=== PATIENT | male | born 1970 | race Caucasian/White ===

== ENCOUNTER 2017-10-18 01:07 | Emergency (ER) | payer OTHER ==
[~2017-10-18] VITALS: Ht 182.9 cm; Wt 58.5 kg
[2017-10-18] MEDS ORDERED: DESCOVY 200-251 EACH PO (01:24)
[2017-10-18] MEDS ORDERED: TIVICAY50 MG ORAL (01:24)
[2017-10-18] MEDS ORDERED: TAMSULOSIN HCL0.4 MG ORAL (01:24)
[2017-10-18 01:30] VITALS: BP 111/72
[2017-10-18 01:39] LABS: BILIRUBIN, URINE NEGATIVE (NEGATIVE); COLOR,URINE PALE YELLOW; GLUCOSE, URINE (UA) NEGATIVE (NEGATIVE); KETONES,URINE NEGATIVE (NEGATIVE); LEUKOCYTE ESTERASE ,URINE 3+ (NEGATIVE); NITRITE,URINE POSITIVE (NEGATIVE); PH,URINE 6 (4.5-8.0); PROTEIN,URINE 2+ (NEGATIVE); UROBILINOGEN,URINE NORMAL MG/DL (0.0-1.0)
--- NOTE | 2017-10-18 01:50 | Emergency Room Report ---
History of Present Illness General Chief Complaint: Male Urogenital Problems Source: Patient Present Illness HPI [id number] walk-in with "2 years of burning pain on urination." No polyuria, abd pain, nausea/vomiting. This last month associated with fever/chills, "pain to penis when sitting" but denies rectal pain. States he was at outside hospital in August who received urine Cx results from urgent care clinic where he was previously and was told he "is resistant to a lot of antibiotics." Was given Fosphomycin Abx which he took already Allergies: Coded Allergies: No Known Allergies (Unverified , 10/18/17) Patient History Past Medical History: HIV Past Surgical History: none Pertinent Family History: none Social History: Denies: smoking, alcohol use, drug use Immunizations: UTD Reviewed Nursing Documentation: PMH: Agreed, PSxH: Agreed Review of Systems All Other Systems: negative except mentioned in HPI Physical Exam Vital Signs Date Time Temp Pulse Resp B/P (MAP) Pulse Ox O2 Delivery O2 Flow Rate FiO2 10/18/17 01:15 97.5 101 18 111/72 97 Room Air Sp02 EP Interpretation: reviewed, normal General Appearance: normal inspection, well appearing, no apparent distress, alert, GCS 15, non-toxic Head: normocephalic, atraumatic Eyes: bilateral eye PERRL, bilateral eye EOMI ENT: normal ENT inspection, hearing grossly normal, normal pharynx, no angioedema, normal voice, TMs + canals normal, uvula midline, moist mucus membranes Neck: normal inspection, full range of motion, supple, thyroid normal, no meningismus, no bony tend Respiratory: normal inspection, lungs clear, normal breath sounds, no rhonchi, no respiratory distress, no retraction, no accessory muscle use, no wheezing, speaking full sentences Cardiovascular #1: regular rate, rhythm, no edema, no JVD, normal capillary refill Gastrointestinal: normal inspection, normal bowel sounds, non tender, soft, no mass, no peritonitis, non-distended, no guarding, no hernia, no pulsatile mass Genitourinary: no CVA tenderness Musculoskeletal: normal inspection, back normal, normal range of motion, no calf tenderness, pelvis stable, Renetta's Sign negative Neurologic: normal inspection, alert, oriented x3, responsive, lead burner supervisor III-XII nml as tested, motor strength/tone normal, cerebellar normal, normal gait, speech normal Psychiatric: normal inspection, judgement/insight normal, mood/affect normal, no suicidal/homicidal ideation, no delusions Skin: normal inspection, normal color, no rash Lymphatic: normal inspection, no adenopathy Medical Decision Making Diagnostic Impression: Primary Impression: Dysuria Additional Impression: Pyelonephritis ER Course Nitrite positive again here VSS, Afebrile Not septic appearing Will tx empirically for prostatitis with 1 month cipro Will followup on urine cx susceptibility Likely will need admission for IV Abx at some point and ID consult I have patient's correct phone number as well ER course: Patient has remained stable during ED stay. Disposition: Patient is to be discharged to home. Prescriptions given are cipro Patient is instructed to follow up with their primary care doctor within 5 days. Strict return precautions discussed with patient such as fever, chills, worsening/severe pain, nausea, vomiting, which may indicate severe illness. Patient verbalizes understanding and agrees with plan. Please note that this Emergency Department Report was dictated using [employer] transformation specialist technology software, occasionally this can lead to erroneous entry secondary to interpretation by the dictation equipment Last Vital Signs Date Time Temp Pulse Resp B/P (MAP) Pulse Ox O2 Delivery O2 Flow Rate FiO2 10/18/17 01:15 97.5 101 18 111/72 97 Room Air Status: improved Disposition: HOME, SELF-CARE Scripts Ciprofloxacin HCl (Ciprofloxacin HCl) 750 Mg Tablet 750 MG PO DAILY for 30 Days, #30 TAB Prov: LISA MALAVE M.D. 10/18/17 LISA MALAVE M.D. Oct 18, 2017 01:49
[2017-10-18 02:05] LABS: APPEARANCE,URINE CLOUDY
[2017-10-18] MEDS ORDERED: CIPROFLOXACIN750 M1 PO (02:11)
[2017-10-18 02:20] VITALS: BP 111/72
== END 2017-10-18 02:20 | disposition home or self-care (01) ==
LOC: EMR 01:38
DX: N12 Tubulo-interstitial nephritis, not specified as acute or chronic (principal)
CPT/HCPCS: 81003; 87086; 87181; 99283

== ENCOUNTER 2017-10-21 08:55 | Emergency (ER) | payer OTHER ==
[~2017-10-21] VITALS: Ht 180.3 cm; Wt 54.9 kg
[~2017-10-21 08:55] MED LIST: CIPROFLOXACIN750 M1 PO; DESCOVY 200-251 EACH PO; TAMSULOSIN HCL0.4 MG ORAL; TIVICAY50 MG ORAL
[2017-10-21 09:10] VITALS: BP 135/78
[2017-10-21] MEDS ORDERED: Piperacillin/Tazobactam 3.375 GM in NS 110 ML IVPB ONE (09:15)
[2017-10-21] MEDS ORDERED: Zosyn 3.375gm inj ONE (10:00)
[2017-10-21 10:25] LABS: BASOPHILS % (AUTO) 1.3 % (0.0-2.0); EOSINOPHILS % (AUTO) 3.1 % (0.0-3.0); HEMATOCRIT 45.1 % (42.0-52.0); HEMOGLOBIN 15.4 G/DL (14.2-18.0); LYMPHOCYTES % (AUTO) 33.8 % (20.0-45.0); MEAN CORPUSCULAR VOLUME 94 FL (80-99); MONOCYTES % (AUTO) 11.2 % (1.0-10.0); NEUTROPHILS % (AUTO) 50.6 % (45.0-75.0); PLATELET COUNT 483 K/UL (150-450); RED BLOOD COUNT 4.82 M/UL (4.70-6.10); RED CELL DISTRIBUTION WIDTH 13.4 % (11.6-14.8); WHITE BLOOD COUNT 11.7 K/UL (4.8-10.8)
[2017-10-21 10:27] LABS: ANION GAP 9 mmol/L (5-15); BLOOD UREA NITROGEN 20 mg/dL (7-18); CALCIUM 9.8 MG/DL (8.5-10.1); CARBON DIOXIDE 27 MMOL/L (21-32); CHLORIDE 101 MMOL/L (98-107); CREATININE 1.4 MG/DL (0.55-1.30); POTASSIUM 3.6 MMOL/L (3.5-5.1); SODIUM 137 MMOL/L (136-145)
--- NOTE | 2017-10-21 10:37 | Emergency Room Report ---
History of Present Illness General Chief Complaint: Male Urogenital Problems Source: Patient, Medical Record (CARROLL VANEGAS D.O.) Present Illness HPI Patient was here several days ago with bladder type complaints patient was initiated on oral antibiotics However microbiology shows pain resistance and patient was requested to return Patient presents with fairly chronic pathology as well reporting several oral medications in the past Currently he was having pain with urination some bilateral flank discomfort Increased nausea Denies any vomiting or diarrhea subjective low-grade fever at home denies any rash pain is 4/10 with urination Patient has history of HIV however is well controlled with medication (CARROLL VANEGAS D.O.) Allergies: Coded Allergies: No Known Allergies (Unverified , 10/18/17) Patient History Past Medical History: see triage record Pertinent Family History: none Reviewed Nursing Documentation: PMH: Agreed, PSxH: Agreed (CARROLL VANEGAS D.O.) Nursing Documentation-PMH Past Medical History: No History, Except For (CARROLL VANEGAS D.O.) Review of Systems All Other Systems: negative except mentioned in HPI (CARROLL VANEGAS D.O.) Physical Exam Vital Signs Date Time Temp Pulse Resp B/P (MAP) Pulse Ox O2 Delivery O2 Flow Rate FiO2 10/21/17 09:01 97.3 84 18 135/78 98 Room Air Sp02 EP Interpretation: reviewed, normal General Appearance: no apparent distress - However patient appears thin and frail Head: normocephalic, atraumatic Eyes: bilateral eye PERRL, bilateral eye EOMI ENT: hearing grossly normal, TMs + canals normal, uvula midline, dry mucus membranes Neck: full range of motion, supple, no meningismus, no bony tend Respiratory: lungs clear, normal breath sounds, no rhonchi, no respiratory distress, no retraction, no accessory muscle use Cardiovascular #1: normal peripheral pulses, regular rate, rhythm, no edema, no gallop, no JVD, no murmur Gastrointestinal: normal bowel sounds, non tender, soft, no mass, no organomegaly, non-distended, no guarding, no hernia, no pulsatile mass, no rebound Musculoskeletal: normal inspection Neurologic: oriented x3, responsive, marketing editor III-XII nml as tested, motor strength/ tone normal, sensory intact Psychiatric: mood/affect normal Skin: normal color, no rash, warm/dry, palpation normal Lymphatic: normal inspection, no adenopathy (CARROLL VANEGAS D.O.) Medical Decision Making Diagnostic Impression: Primary Impression: Pyelonephritis ER Course Patient presents back with a fairly complicated Pyelonephritis/cystitis Patient had repeat blood work initiated it appears from a previous culture that the patient has sensitivity to Zosyn this was provided Patient further hydrated Patient does give some history of previous and chronic pathology regarding this however given her immunocompromised status and the finding will require inpatient care Patient required transfer secondary to insurance purposes Labs Test 10/21/17 10:00 10/21/17 11:00 White Blood Count 11.7 K/UL (4.8-10.8) Red Blood Count 4.82 M/UL (4.70-6.10) Hemoglobin 15.4 G/DL (14.2-18.0) Hematocrit 45.1 % (42.0-52.0) Mean Corpuscular Volume 94 FL (80-99) Mean Corpuscular Hemoglobin 31.9 PG (27.0-31.0) Mean Corpuscular Hemoglobin Concent 34.1 G/DL (32.0-36.0) Red Cell Distribution Width 13.4 % (11.6-14.8) Platelet Count 483 K/UL (150-450) Mean Platelet Volume 5.3 FL (6.5-10.1) Neutrophils (%) (Auto) 50.6 % (45.0-75.0) Lymphocytes (%) (Auto) 33.8 % (20.0-45.0) Monocytes (%) (Auto) 11.2 % (1.0-10.0) Eosinophils (%) (Auto) 3.1 % (0.0-3.0) Basophils (%) (Auto) 1.3 % (0.0-2.0) Sodium Level 137 MMOL/L (136-145) Potassium Level 3.6 MMOL/L (3.5-5.1) Chloride Level 101 MMOL/L (98-107) Carbon Dioxide Level 27 MMOL/L (21-32) Anion Gap 9 mmol/L (5-15) Blood Urea Nitrogen 20 mg/dL (7-18) Creatinine 1.4 MG/DL (0.55-1.30) Estimat Glomerular Filtration Rate 53.9 mL/min (>60) Glucose Level 119 MG/DL (74-106) Lactic Acid Level 1.50 mmol/L (0.66-2.22) Calcium Level 9.8 MG/DL (8.5-10.1) Total Bilirubin 0.5 MG/DL (0.2-1.0) Aspartate Amino Transf (AST/SGOT) 35 U/L (15-37) Alanine Aminotransferase (ALT/SGPT) 51 U/L (12-78) Alkaline Phosphatase 97 U/L (46-116) Total Creatine Kinase 86 U/L (26-308) Creatine Kinase MB < 0.5 NG/ML (0.0-3.6) Creatine Kinase MB Relative Index Total Protein 9.2 G/DL (6.4-8.2) Albumin 3.6 G/DL (3.4-5.0) Globulin 5.6 g/dL Albumin/Globulin Ratio 0.6 (1.0-2.7) Urine Color Yellow Urine Appearance Cloudy Urine pH 6 (4.5-8.0) Urine Specific [place] 1.015 (1.005-1.035) Urine Protein 2+ (NEGATIVE) Urine Glucose (UA) Negative (NEGATIVE) Urine Ketones Negative (NEGATIVE) Urine Occult Blood 4+ (NEGATIVE) Urine Nitrite Positive (NEGATIVE) Urine Bilirubin Negative (NEGATIVE) Urine Urobilinogen Normal MG/DL (0.0-1.0) Urine Leukocyte Esterase 3+ (NEGATIVE) Urine RBC 2-4 /HPF (0 - 0) Urine WBC 30-40 /HPF (0 - 0) Urine Squamous Epithelial Cells Occasional /LPF Urine Bacteria Moderate /HPF (NONE) (CARROLL VANEGAS D.O.) ER Course Urine culture shows ESBL. Patient has history of multidrug resistance UTI. patient transferred to [facility]. Cx results faxed (CHIP SAHA M.D.) Last Vital Signs Date Time Temp Pulse Resp B/P (MAP) Pulse Ox O2 Delivery O2 Flow Rate FiO2 10/21/17 09:10 18 135/78 98 Room Air 10/21/17 09:01 97.3 84 Status: improved (CARROLL VANEGAS D.O.) Disposition: XFER SHT-TRM HOSP Condition: Serious Referrals: [facility],REFERRING (PCP) CARROLL VANEGAS D.O. Oct 21, 2017 10:37 CHIP SAHA M.D. Oct 21, 2017 23:48
[2017-10-21 10:41] LABS: ALANINE AMINOTRANSFERASE 51 U/L (12-78); ALBUMIN 3.6 G/DL (3.4-5.0); ALBUMIN/GLOBULIN RATIO 0.6 (1.0-2.7); ALKALINE PHOSPHATASE 97 U/L (46-116); ASPARTATE AMINO TRANSFERASE 35 U/L (15-37); BILIRUBIN,TOTAL 0.5 MG/DL (0.2-1.0); CKMB < 0.5 NG/ML (0.0-3.6); CREATINE KINASE 86 U/L (26-308)
[2017-10-21 11:26] LABS: APPEARANCE,URINE CLOUDY; BILIRUBIN, URINE NEGATIVE (NEGATIVE); GLUCOSE, URINE (UA) NEGATIVE (NEGATIVE); KETONES,URINE NEGATIVE (NEGATIVE); LEUKOCYTE ESTERASE ,URINE 3+ (NEGATIVE); NITRITE,URINE POSITIVE (NEGATIVE); PH,URINE 6 (4.5-8.0); PROTEIN,URINE 2+ (NEGATIVE); UROBILINOGEN,URINE NORMAL MG/DL (0.0-1.0)
[2017-10-21 11:27] VITALS: BP 135/85
[2017-10-21 11:27] LABS: COLOR,URINE YELLOW
[2017-10-21 11:52] VITALS: BP 135/85
== END 2017-10-21 11:52 | disposition other institution (70) ==
LOC: EMR 09:25
DX: N12 Tubulo-interstitial nephritis, not specified as acute or chronic (principal)
CPT/HCPCS: 36415; 80053; 81003; 82550; 82553; 83605; 85025; 87040; 87086; 87181; 96361; 96365; 99285; J2543

== ENCOUNTER 2019-05-27 12:01 | Emergency (ER) | payer OTHER ==
[~2019-05-27] VITALS: Ht 180.3 cm; Wt 54.9 kg
[2019-05-27 12:09] VITALS: BP 103/74
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
--- NOTE | 2019-05-27 13:23 | Diagnostic Imaging Report ---
Indication: Headache and head trauma Technique: Contiguous 5 mm thick transaxial imaging of the head obtained in a Siemens Sensation [address] scanner. Soft tissue and bone windows generated. Automatic Exposure Control was utilized. Total Dose length Product (DLP): 1660.[address] Dose Index Volume (CTDIvol): 70.38,7.53 mGy Comparison: none Findings: The size and configuration of the cortical sulci, basal cisterns, and ventricles are within normal limits for age. There is no mass effect, midline shift, or edema identified. There is no evidence of acute hemorrhage or abnormal intra-axial or extra-axial fluid collections. The bones and soft tissues are unremarkable. Impression: No mass effect, edema or acute bleed. [facility] has communicated the preliminary results to the Emergency Department. Their findings are largely concordant with this report. The CT scanner at [facility] is accredited by the [employer] and the scans are performed using dose optimization techniques as appropriate to a performed exam including Automatic Exposure control.
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
[2019-05-27] MEDS ORDERED: IBUPROFEN600 MG ORAL (13:46)
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
[2019-05-27 14:15] VITALS: BP 108/69
== END 2019-05-27 14:15 | disposition home or self-care (01) ==
LOC: EMR 12:47
DX: S10.93XA Contusion of unspecified part of neck, initial encounter (principal); S00.93XA Contusion of unspecified part of head, initial encounter; Y04.8XXA Assault by other bodily force, initial encounter; Y92.9 Unspecified place or not applicable; B20 Human immunodeficiency virus [HIV] disease
CPT/HCPCS: 70450; 72125; Z7502; 99284